=== PATIENT | male | born 1940 | race Caucasian/White ===

== ENCOUNTER 2024-03-01 14:45 | Emergency (ER) | payer MEDICARE, SELFPAY ==
[2024-03-01 14:46] VITALS: BP 130/74; PULSE 67; RESP 15; TEMP 36.2; O2SAT 96; BMI 32.9
--- NOTE | 2024-03-01 14:51 | EX.ED.DYSGE1 ---
HPI History of Present Illness Chief Complaint: Constipation Informant: patient Onset/Context/Timing Onset: Weeks (1) Context: Gradual Onset Timing: Intermittent Quality: Sharp Location: Left lower abdomen Worsened by: Nothing Relieved by: Nothing Narrative Narrative: Patient presents with abdominal pain and constipation that has been getting worse over the past week. Patient states he has had some small bowel movements. Patient states he noted some blood on the toilet paper with these bowel movements. Patient denies any melena or hematochezia. Patient denies any nausea or vomiting. Patient states he gets intermittent sharp pains in the left lower abdomen. Patient states nothing makes it worse and nothing makes it better. Patient also admits to some mild dizziness and weakness. 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 [facility] Medical History (Updated 03/01/24 @ 16:[address] Benny Anderson, ) Atrial fibrillation Hypertension Home Medications ?Medication ?Instructions ?Recorded ?Last Taken ?Type amoxicillin 875 mg-potassium 875 mg PO Q12H #20 TABLETS 03/01/24 Unknown Rx clavulanate 125 mg tablet Allergy/AdvReac Type Severity Reaction Status Date / Time No Known Allergies Allergy Verified 03/01/24 14:46 Surgical History History of herniorrhaphy Hx of CABG Social History Smoking Status: Former smoker ROS ROS ED Constitutional Constitutional ED: Denies chills or fever(s) Eyes Eyes: Denies blurry vision or change in vision ENT ENT ED: Reports rhinorrhea; Denies sore throat Cardiovascular Cardiovascular: Denies chest pain or palpitations Respiratory/Chest Respiratory/Chest: Denies cough or dyspnea Gastrointestinal Gastrointestinal: Reports abdominal pain and constipation; Denies nausea or vomiting Genitourinary Genitourinary ED: Reports urinary frequency; Denies dysuria or hematuria Musculoskeletal Musculoskeletal: Reports neck pain; Denies back pain Integumentary Denies abscess or rash Neurologic Neurologic: Reports headache(s); Denies weakness Allergic/Immunologic Allergic/Immunologic ED: Denies mouth swelling or urticaria EXAM Physical Exam Const Vital Signs: 03/01/24 14:46 03/01/24 16:00 Temperature 97.2 F L Temperature Source Temporal Pulse Rate 67 73 Respiratory Rate 15 18 Blood Pressure 130/74 H 137/80 H Blood Pressure Mean 92 99 Pulse Ox 96 93 Oxygen Delivery Method Room Air Room Air Positive well nourished and well developed General Appearance ED: well developed and NAD HEENT Reports moist mucous membranes Neck supple and no JVD Resp normal respiratory effort and clear to auscultation bilaterally Cardio regular rate Rhythm: abnormal rhythm irregularly irregular GI non-distended Palpation: soft and tender LLQ, LUQ, periumbilical and suprapubic; Negative for guarding or rebound tenderness present Extremity normal to inspection General Extremety ED: Negative for edema or tenderness General Extremity: Negative for edema Neuro oriented x3, CN's II-XII intact bilaterally and no sensory deficits noted Sensorium / Orientation: alert Motor Exam: strength 5/5 throughout Skin no rashes or lesions noted MDM MDM MDM Narrative Medical decision making narrative: Differential diagnosis includes constipation, diverticulitis, urinary tract infection, ureteral calculus, electrolyte abnormality, colitis, pancreatitis, and viral illness. CBC will be obtained to assess for leukocytosis and anemia. Comprehensive metabolic profile will be obtained to assess for hepatic function, renal function, and electrolyte abnormality. Lipase will be obtained to assess for pancreatitis. Urinalysis will be obtained to assess for urinary tract infection changes area. CT scan of the abdomen and pelvis will be obtained to assess for diverticulitis, ureteral calculus, colitis, bowel obstruction, and perforation. Lab Data Attestation: I reviewed the patient's lab results. Lab results narrative: CBC was reviewed. There is a slight anemia with a hemoglobin of 12.1 and hematocrit of 38.2. Platelets were slightly low at 134. Comprehensive metabolic profile was reviewed. BUN was 20 and creatinine was 1.57. There are no prior values for comparison. Lipase was reviewed and was slightly elevated at 93. Urinalysis was reviewed. There is no evidence of urinary tract infection or hematuria. Labs: Laboratory Results - last 24 hr 03/01/24 03/01/24 15:12 15:42 WBC 9.4 RBC 4.30 L Hgb 12.1 L Hct 38.2 L MCV 88.8 MCH 28.1 MCHC 31.7 L RDW Std Deviation 57.3 H RDW Coeff of Maurilio 17.6 H Plt Count 134 L MPV 7.6 Immature Gran % (Auto) 0.400 Neut % (Auto) 70.2 H Lymph % (Auto) 17.8 L [place] % (Auto) 9.8 Eos % (Auto) 1.7 Baso % (Auto) 0.1 Absolute Neuts (auto) 6.6 Absolute Lymphs (auto) 1.67 Nucleated RBC % 0 Sodium 135 L Potassium 4.2 Chloride 105 Carbon Dioxide 24.0 Anion Gap 6 BUN 20 H Creatinine 1.57 H Estim Creat Clear Calc 40.33 Est GFR (MDRD) Af Amer 54 L Est GFR (MDRD) Non-Af 45 L BUN/Creatinine Ratio 12.7 Glucose 99 Calcium 8.8 Total Bilirubin 0.90 AST 16 ALT 24 Alkaline Phosphatase 84 Total Protein 7.3 Albumin 3.4 Globulin 3.9 Albumin/Globulin Ratio 0.9 Lipase 93 H Urine Color Yellow Urine Clarity Clear Urine pH 6.0 Ur Specific [place] 1.010 Urine Protein Negative Urine Glucose (UA) Normal Urine Ketones Negative Urine Occult Blood Negative Urine Nitrite Negative Urine Bilirubin Negative Urine Urobilinogen Normal Ur Leukocyte Esterase Negative Urine RBC 0-5 SEEN Urine WBC 0 SEEN Ur Squamous Epith Cells 0-5 SEEN Urine Bacteria 0 SEEN Urine Mucus 0 SEEN Radiography Diagnostic Testing: Clinical Impression(s) from Imaging Studies Abdomen/Pelvis CT 03/01/24 15:05 IMPRESSION: Diverticulosis of the colon. Focal diverticulitis suspected in the proper clinical settings at the sigmoid. Bilateral renal cysts. 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 Electronically Signed: Avtar Mckeon DO at 16:43 EST Reading Location ID and State: [address] [place] [address] Tel [phone], Service support , CT scan of the abdomen pelvis was obtained. There is diverticulosis and a focal area of diverticulitis in the sigmoid colon. There are bilateral renal cysts. There is a distal abdominal aortic aneurysm measuring 3.1 cm the left internal iliac artery aneurysm measuring 2.1 cm. There is no free air or free fluid. This was interpreted by the radiologist and was also independently reviewed by myself. Treatment and Re-Evaluation :: Patient was given IV fluids. Patient was advised of his findings. Patient was given a dose of Augmentin here. Patient was given a prescription for Augmentin. Patient was instructed to use [id number] laxatives as needed. Patient was instructed to follow-up with his primary care physician in 5 to 7 days for further evaluation. Patient was instructed to return if worse in any way. Patient understood and was agreeable with the plan. All questions were answered. Discharge Plan Triage Chief Complaint: Constipation ED Provider: Benny Anderson Dx/Rx/DC Orders Clinical Impression: Diverticulitis, Atrial fibrillation Instructions: ED Diverticulitis Prescriptions: New amoxicillin-pot clavulanate 875-125 mg tablet 875 mg PO Q12H Qty: 20 0RF Primary Care Provider: Jian Sarmiento Referrals: Jian Sarmiento MD [Primary Care Provider] - 5-7 Days Print Language: Kosovan Disposition Disposition: Home, Self Care
--- NOTE | 2024-03-01 15:05 | CT_ITS ---
STUDY: CT ABDOMEN AND PELVIS WITH CONTRAST REASON FOR EXAM: Male, 84 years old. Abdominal pain RADIATION DOSAGE (If Supplied By Facility): CTDIvol = ( 15.6 ) mGy, DLP = ( 988.48 ) mGycm TECHNIQUE: Transaxial images were obtained from the dome of the diaphragm to the symphysis pubis without oral contrast. IV 100mL Isovue-300 was administered. Sagittal and coronal images were reconstructed. Individualized dose optimization techniques were used for this CT. COMPARISON: None. FINDINGS: The visualized lung bases are unremarkable. The visualized portions of the heart are within normal limits. Granulomatous calcifications in the spleen and the liver. Normal gallbladder and extrahepatic biliary system. Borderline size spleen. Normal pancreas. Normal bilateral adrenal glands. Bilateral renal cysts. Normal visualized stomach. Normal small intestine. Diverticulosis of the colon. Focal diverticulitis suspected in the proper clinical settings at the sigmoid. The appendix is visualized and appears normal. Calcified abdominal aorta with distal abdominal aortic dilatation just superior to the bifurcation measuring 3.1 cm in diameter. 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 Normal inferior vena cava. Normal retroperitoneum. Normal urinary bladder. Normal abdominal wall. Degenerative vertebral changes. CT/Abdomen/Pelvis W IV Cont ONLY IMPRESSION: Diverticulosis of the colon. Focal diverticulitis suspected in the proper clinical settings at the sigmoid. Bilateral renal cysts. 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 Electronically Signed: Avtar Mckeon DO at 16:43 EST Reading Location ID and State: [facility] / [place] Tel [phone], Service support ,
[2024-03-01 15:16] LABS: Absolute Lymphocyte Count 1.67 X10^3/uL (0.83-4.51); Absolute Neutrophil Count 6.6 X10^3/uL (2.0-7.7); Basophil# 0.01 X10^3/uL; Basophil% 0.1 % (0-1); Eosinophil# 0.16 X10^3/uL; Eosinophils% 1.7 % (0-5); Hematocrit 38.2 % (40-54); Hemoglobin 12.1 g/dL (13.0-16.5); Lymphocyte # 1.67 X10^3/ul (0.83-4.51); Lymphocyte % 17.8 % (19-41); Mean Corp Hgb Conc 31.7 g/dL (32-36); Mean Corpuscular Hgb 28.1 pg (27.0-32.0); Mean Corpuscular Volume 88.8 fL (80-94); Mean Platelet Vol. 7.6 fl (6.2-12.0); Monocyte# 0.92 X10^3/uL; Monocyte% 9.8 % (0-10); NRBC Flagged by Analyzer 0 % (0-5); Neutrophil # 6.56 X10^3/uL (2.7-7.7); Neutrophil % 70.2 % (47-70); Platelet Count 134 K/mm3 (150-450); RBC Distribution Width CV 17.6 % (11.6-14.6); RBC Distribution Width SD 57.3 fl (35.1-43.9); White Blood Count 9.4 K/mm3 (4.4-11.0)
[2024-03-01 15:47] LABS: Bacteria 0 SEEN /hpf (None Seen); Mucous, Urine 0 SEEN /hpf (<or=2+); White Blood Cells 0 SEEN /hpf (0-5)
[2024-03-01 15:49] LABS: Color, Urine Yellow (Yellow); Glucose, Dipstick Normal (Normal); Ketone-Dipstick Negative (Negative); Leukocyte Esterase-Dipstick Negative /ul (Negative); Nitrite-Dipstick Negative (Negative); Occult Blood-Urine Negative /ul (Negative); Protein-Dipstick Negative (Negative); Urine Bilirubin Dipstick Negative (Negative); Urine Clarity Clear (Clear); Urine Urobilinogen Normal (Normal)
[2024-03-01 15:57] LABS: ALB/GLOB Ratio 0.9 RATIO (0.9-2.4); AST(SGOT) 16 U/L (15-37); Alanine Aminotransfer ALT/SGPT 24 U/L (16-61); Albumin, Serum 3.4 g/dL (3.2-5.0); Alkaline Phosphatase 84 U/L (45-117); Anion Gap 6 (5-15); BUN 20 mg/dL (7-18); BUN/Creat Ratio 12.7 RATIO (10-20); Calcium,Total 8.8 mg/dL (8.5-10.1); Chloride 105 mmol/L (98-107); Creatinine, Serum 1.57 mg/dL (0.70-1.30); EST Glomerular Filtration Rate 45 mL/min (>60); Est Glom Filt Rate - Afr Amer 54 mL/min (>60); Estimated Creatinine Clearance 40.33 ml/min; Globulin 3.9 g/dL (2.2-4.2); Glucose 99 mg/dL (74-106); Lipase 93 U/L (13-75); Potassium 4.2 mmol/L (3.5-5.1); Protein, Total 7.3 g/dL (6.4-8.2); Sodium Level 135 mmol/L (136-145)
[2024-03-01 16:00] VITALS: BP 137/80; PULSE 73; RESP 18; O2SAT 93
[2024-03-01 16:06] LABS: Red Blood Cells-Urine 0-5 SEEN /hpf (0-5); Squamous Epithelial Cells - UA 0-5 SEEN /hpf (0-5)
[2024-03-01] MEDS: 0.9% Normal Saline (1000mL) 1,000 ML 1000 ML IV (16:25)
[2024-03-01 16:58] VITALS: BP 130/78; PULSE 80; RESP 15; TEMP 36.7; O2SAT 95
[2024-03-01] MEDS: Amox/Clavulanate 875 MG Tablet PO (17:06)
== END 2024-03-01 17:26 | disposition home or self-care (01) ==
PROVIDERS: Emergency Provider Emergency Medicine; PCP Family Medicine; Visit Provider Emergency Medicine
DX: K59.00 Constipation, unspecified (principal); I48.91 Unspecified atrial fibrillation; R10.32 Left lower quadrant pain; Z87.891 Personal history of nicotine dependence; K57.92 Diverticulitis of intestine, part unspecified, without perforation or abscess without bleeding; I10 Essential (primary) hypertension; Z95.1 Presence of aortocoronary bypass graft
CPT/HCPCS: 74177; 80053; 81001; 83690; 85025; 96360; 99283; Q9967; A4216